=== PATIENT | female | born 1960 | race Caucasian/White ===

== ENCOUNTER 2016-10-19 21:30 | Emergency (ER) | payer OTHER ==
[2016-10-19 21:52] VITALS: RESP 18; TEMP 97.6
[2016-10-19] MEDS ORDERED: Meperidine Inj 50 MG/ML CARPUJECT IM ONE (22:32)
[2016-10-19] MEDS ORDERED: Ondansetron ODT Tab 4 MG TAB PO ONE ×2 (22:32)
[2016-10-19] MEDS ORDERED: oxyCODONE/APAP 10/325 Tab 1 EACH TAB PO SCH (22:45)
[2016-10-19] MEDS: Ondansetron ODT Tab 4 MG TAB PO SCH ×2 (22:55→23:22)
--- NOTE | 2016-10-19 23:00 | DI ---
HISTORY: Left shoulder pain. Patient cannot abduct arm. History of surgery in 2000. Current injur y occurred during lifting/throwing. COMPARISON: None available. FINDINGS: Examination reveals no definite evidence of fracture or dislocation. IMPRESSION: 1. No acute osseous abnormalities. Clinical correlation is requested.
--- NOTE | 2016-10-20 02:25 | PDOC ---
Shoulder Injury/Pain HPI - General Chief Complaint: Upper Extremity Problem/Injury Stated Complaint: LEFT SHOULDER PAIN Date Seen by Provider: 10/19/16 Time Seen by Provider: 21:40 Source: POSITIVE: Patient Exam Limitations: POSITIVE: No limitations Nurse's Notes Reviewed & Considered: Yes - History of Present Illness Initial Comments: The patient is a 56 year old female. Patient was throwing a tiedown and she experienced abrupt onset of pain over the anterior and anterolateral aspect of her left shoulder. 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 Patient states she had surgery on her left shoulder in 2000. No paresthesia or sensory, motor or vascular symptoms. Have you received a tetanus shot in the past 10 years?: Yes Location: Left Shoulder Timing: REPORTS: Abrupt Duration: 4-6 hours Severity: Moderate Quality: REPORTS: Aching, "Pain", Tenderness Location at Time of Onset: REPORTS: Other ([place]) Context: REPORTS: Other (Abrupt onset of pain while throwing a tiedown device on a trailer) Associated Symptoms: REPORTS: Unable to Move Shoulder (Due to pain) Any Prior Injuries Related to Current Complaint?: No - Patient Home Medications Home Medications: Home Medications Ibuprofen [Genpril] 200 mg PO PRN 10/19/16 Levothyroxine Sodium [Levoxyl] 125 mcg PO DAILY 10/19/16 Naproxen [Naprosyn] 250 mg PO BID 10/19/16 Oxycodone HCl/Acetaminophen [Percocet 10-325 Mg Tablet] 1 each PO Q4H PRN #20 tablet 10/19/16 T Thyroid 1 tab PO DAILY 10/19/16 - Patient Allergies Allergies/Adverse Reactions: Allergies Allergy/AdvReac Type Severity Reaction Status Date / Time codeine Allergy VOMITING Verified 10/19/16 21:36 Past Medical History - heen HEENT History: Denies History Cardiovascular History: Denies History Respiratory History: Denies History Gastrointestinal History: Denies History Genitourinary History: Denies History Endocrine History: Denies History Musculoskeletal History: Denies History Neurological History: Traumatic Brain Injury Blood Disorders: Denies History Psychiatric History: Denies History Female Reproductive History: Denies History Obstetrical History: Denies History Cancer History: Denies History In Past Year Been Physically Harmed or Verbally Threatened: No History of MDRO: No Tobacco Use: Current Every Day Smoker Alcohol Use: Sober Substance Use Type: None Previous Surgical History: Yes Type / Date of Surgery: TOTAL HYSTERECTOMY, COSMETIC ON EARS, RIGHT KNEE SCOOP Significant Family History: No pertinent family hx Past Medical History Reviewed: Reviewed - No Changes ROS - Limitations ROS Limitations: No Limitations Constitution: REPORTS: Denies Symptoms Cardiovascular: REPORTS: Denies Cardiac Symptoms Respiratory: REPORTS: Denies Resp Symptoms Neurological: REPORTS: Denies Neuro Symptoms Gastrointestinal: REPORTS: Denies GI Symptoms Endocrine: REPORTS: Denies Symptoms Musculoskeletal: REPORTS: Joint Pain (Left shoulder), Recent Injury (As above) Genitourinary: REPORTS: Denies Symptoms Eyes: REPORTS: Denies Symptoms ENT: REPORTS: Denies Symptoms Skin: REPORTS: Denies Skin Symptoms Lympathic: REPORTS: Denies Lympathic Symptoms Immunologic: POSITIVE: Denies Symptoms Psychiatric: POSITIVE: Denies Psych Symptoms Shoulder Injury/Pain Exam - General Appearance General Appearance: POSITIVE: Alert, Cooperative, Moderate Distress - Upper Extremity Shoulder: POSITIVE: No Dislocation, Soft-Tissue Tenderness, Bony Tenderness, Limited ROM, Held in Adduction, See Diagram. NEGATIVE: Full ROM, Swelling, Ecchymosis, Clavicular Deformity, AC Drop-Off, Anterior Fullness Upper Extremity: POSITIVE: Uninjured Below Shoulder Neuro/Vascular: POSITIVE: Sensation Normal, Motor Normal, No Vascular Compromise Skin: POSITIVE: Warm, Dry - Neck / Back Neck/Back: POSITIVE: Normal Inspection, Non-Tender, Painless ROM - Respiratory / CVS Respiratory / CVS: POSITIVE: Chest Non Tender, No Ecchymosis, Breath Sounds Normal, No Respiratory Distress, Heart Sounds Normal, Regular Rate/Rhythm Peripheral Pulses: Radial (R): 2+, Radial (L): 2+ Procedure - Splinting Time Splint Applied: 22:30 Location: left shoulder immobilizer Pre-Proc Neuro Vasc Exam: Normal Splint Type: Shoulder Immobilizer (Right) Applied By:: Nurse Post-Proc Neuro Vasc Exam: Normal Images - Complete Complete: 1 - Area of pain Shoulder Pain/Injury Progress - Results Reviewed by me Xrays/CTs/US Reviewed by me: Yes Discussed with Radiologist: No Radiology Findings: X-ray left shoulder shows no fractures or dislocations - Patient's Progress Pain Medication Addressed: POSITIVE: Yes (Patient given Demerol IM along with Zofran sublingual. Patient discharged on Percocet) School/Work Release Addressed: POSITIVE: Not Applicable Re-Examine Time:: 22:35 Re-Examine Comment: Some relief of discomfort following shoulder immobilizer immobilization and Demerol IM Status: POSITIVE: Improved, Re-Examined - Consult Counseled: POSITIVE: Patient, RE: Radiology Results, RE: DX, RE: Need for F/U Patient Care Time - Estimated PCT Patient Care Time (In Minutes): 32 Vital Signs - Recent Vital Signs Vital Signs: Vital Signs (Last 8 hours) Temp Pulse Resp BP Pulse Ox 10/19/16 21:35 97.6 F 90 18 126/105 95 10/19/16 21:30 97.6 F 90 18 126/105 95 - VS Reviewed Vital Signs Reviewed: Yes Discharge Clinical Impression: Sprain of shoulder and upper arm Discharge Disposition: Discharged to Home Condition: Stable Prescriptions / Orders: Oxycodone HCl/Acetaminophen [Percocet 10-325 Mg Tablet] 1 each PO Q4H PRN #20 tablet PRN Reason: Pain Patient Instructions Given at Discharge: Shoulder Sprain (ED) Additional Instructions: You have at least strained, and possibly tore, some muscles or ligaments in your left shoulder. X-ray of your left shoulder shows no fractures or dislocations. Please support your left shoulder in the shoulder immobilizer given to you in the emergency room. Percocet, one every 4 hours as necessary for pain. Follow-up with your orthopedic surgeon in [place] upon return to home. Cool compresses to your shoulder. Return here anytime if we may be of any further service in any way. Follow Up With: NONE,NONE [Primary Care Provider] - (Instructions as above. Follow-up with your orthopedic surgeon in [place]. Return as necessary.)
== END 2016-10-19 23:04 | disposition home or self-care (01) ==
LOC: ER 21:30
DX: S43.402A Unspecified sprain of left shoulder joint, initial encounter (principal); M25.512 Pain in left shoulder
CPT/HCPCS: 73030; 96372; 99282; 99283; J2175